=== PATIENT | female | born 1935 | race Caucasian/White ===

== ENCOUNTER → 2016-09-15 | Outpatient (REF) | payer MEDICARE | LOC: M LAB REF 16:08 | PROVIDERS: ATTEND Physician Assistant | DX: M54.5 Low back pain (principal); Z79.899 Other long term (current) drug therapy ==

== ENCOUNTER → 2017-01-02 | Outpatient (CLI) | payer MEDICARE ==
[2017-01-02 15:00] LABS: MEAN CORPUSCULAR HEMOGLOBIN 31.4 pg (27.0-33.0); MEAN CORPUSCULAR HGB CONC 32.9 g/dl (32.0-36.5); MEAN CORPUSCULAR VOLUME 95.3 fl (80.0-96.0); RED CELL DISTRIBUTION WIDTH 13.1 % (11.5-14.5); WHITE BLOOD COUNT 6.7 K/mm3 (4.0-10.0)
[2017-01-02 15:39] LABS: ALBUMIN 3.6 GM/DL (3.2-5.2); ANION GAP 5 MEQ/L (8-16); ANISOCYTOSIS 1+; BASOPHILS 2 % (0-4); BLOOD UREA NITROGEN 17 MG/DL (7-18); CALCIUM LEVEL 8.7 MG/DL (8.8-10.2); CARBON DIOXIDE LEVEL 34 MEQ/L (21-32); CHLORIDE LEVEL 101 MEQ/L (98-107); CREATININE FOR GFR 0.88 MG/DL (0.55-1.02); EOSINOPHILS 1 % (0-5); GLOMERULAR FILTRATION RATE > 60.0 (>32); GLUCOSE, FASTING 104 MG/DL (83-110); POTASSIUM SERUM 3.8 MEQ/L (3.5-5.1); SODIUM LEVEL 140 MEQ/L (136-145)
== END ==
LOC: M LAB 14:18
PROVIDERS: ATTEND Internal Medicine Nephrology
DX: N18.2 Chronic kidney disease, stage 2 (mild) (principal); Z79.899 Other long term (current) drug therapy

== ENCOUNTER → 2017-01-26 | Outpatient (CLI) | payer MEDICARE ==
--- NOTE | 2017-01-26 13:26 | REP ---
Urinary tract sonography: History: Chronic kidney disease, stage II. Findings: Scanning through the urine filled bladder demonstrates smooth bladder cr. Pre void bladder volume is calculated at 128 mL. Postvoid bladder volume is 36 mL, 28% postvoid residual. Emptying ureteral jets were not visualized. Renal cortical echogenicity pattern is normal bilaterally and renal contours are smooth. The right kidney measures 11.8 x 5.1 x 4.8 cm. Left renal dimensions of 10.2 x 5.3 x 5.8 cm. There is mild right-sided hydronephrosis. There is an echogenic structure in the right renal pelvis measuring 2.4 x 2.1 cm, suggestive of a calculus. Another large echogenic shadowing structure is seen 1.7 cm in diameter in the right kidney. There is a 2.4 x 1.6 x 3.1 cm cyst at the upper pole of the left kidney. Impression: Mild right-sided hydronephrosis with evidence of intrarenal nephrolithiasis on the right. Simple cyst upper pole left kidney. Signed by Norberto Deras MD 01/26/2017 02:50 P
== END ==
LOC: M RAD 11:52
PROVIDERS: ATTEND Internal Medicine Nephrology
DX: N18.2 Chronic kidney disease, stage 2 (mild) (principal); N39.0 Urinary tract infection, site not specified; N20.0 Calculus of kidney; N13.30 Unspecified hydronephrosis

== ENCOUNTER → 2017-01-27 | Outpatient (CLI) | payer MEDICARE ==
--- NOTE | 2017-01-27 13:30 | REP ---
Clinical nephrolithiasis. Comparison: 10/13/2011. Findings: Right kidney demonstrates cortical lobulation is and 2.5 cm nonobstructing renal calculus with mild likely chronic hydronephrosis possibly related to intermittent obstruction by the nephrolith. The right ureter is normal and without obstructing calculus. The left kidney demonstrates cortical lobulations and presumed cysts measuring up to 1.9 cm diameter without nephroureterolithiasis or hydroureteronephrosis. The bladder is unremarkable. Liver demonstrates chronic focal hypodense area with calcification along the posterior periphery of the right lobe unchanged from 2012. Spleen, pancreas, gallbladder, and bilateral adrenal glands are normal. The enteric system is without obstruction or acute inflammatory process. Few scattered colonic diverticula noted without acute diverticulitis. Pelvis demonstrates normal bladder and age-appropriate uterus. A 4.1 cm left adnexal cyst with calcification is again identified and dermoid cannot be excluded. Right adnexa demonstrates two calcifications unchanged compared to 2012. No ascites. No free air. No adenopathy. Atherosclerotic changes of the aorta and vasculature noted without aneurysm. 1 cm fat containing periumbilical hernia. Musculoskeletal structures demonstrate degenerative changes. Lung bases demonstrate partially calcified right posterior pleural plaque. Impression: 1. Presumed mild chronic right renal hydronephrosis possibly secondary to intermittent obstruction by 2.5 cm renal calculus. Left kidney demonstrates 1.9 cm suspected cyst and no evidence for nephroureterolithiasis or hydronephrosis. 2. 4.1 cm left adnexal cyst with calcification possibly dermoid. Signed by Garrick Nogueira MD 01/27/2017 01:21 P
== END ==
LOC: M RAD 12:34
PROVIDERS: ATTEND Internal Medicine Nephrology
DX: N20.0 Calculus of kidney (principal); N13.39 Other hydronephrosis

== ENCOUNTER → 2017-02-08 | Outpatient (CLI) | payer MEDICARE ==
[2017-02-08 18:27] LABS: ALBUMIN 3.8 GM/DL (3.2-5.2); ALBUMIN/GLOBULIN RATIO 1.06 (1.00-1.93); ALKALINE PHOSPHATASE 58 U/L (45-117); ALT/SGPT 18 U/L (12-78); ANION GAP 6 MEQ/L (8-16); AST/SGOT 11 U/L (15-37); BILIRUBIN,TOTAL 0.4 MG/DL (0.2-1.0); BLOOD UREA NITROGEN 23 MG/DL (7-18); CALCIUM LEVEL 9.7 MG/DL (8.8-10.2); CARBON DIOXIDE LEVEL 34 MEQ/L (21-32); CHLORIDE LEVEL 101 MEQ/L (98-107); CHOLESTEROL LEVEL 193 MG/DL (<200); CREATININE FOR GFR 0.89 MG/DL (0.55-1.02); GLOMERULAR FILTRATION RATE > 60.0 (>32); GLUCOSE, FASTING 93 MG/DL (83-110); POTASSIUM SERUM 3.4 MEQ/L (3.5-5.1); SODIUM LEVEL 141 MEQ/L (136-145); TOTAL PROTEIN 7.4 GM/DL (6.4-8.2); TRIGLYCERIDES LEVEL 135 MG/DL (<150)
[2017-02-08 18:32] LABS: BASO # 0.1 K/mm3 (0.0-0.2); BASO % 0.6 % (0.0-1.0); EOS # 0.1 K/mm3 (0.0-0.50); EOS % 1.4 % (0.0-3.0); LYMPH # 2.2 K/mm3 (1.5-4.5); LYMPH % 20.6 % (24.0-44.0); MEAN CORPUSCULAR HEMOGLOBIN 30.7 pg (27.0-33.0); MEAN CORPUSCULAR HGB CONC 32.6 g/dl (32.0-36.5); MEAN CORPUSCULAR VOLUME 94.2 fl (80.0-96.0); MONO # 0.6 K/mm3 (0.0-0.8); MONO % 5.9 % (0.0-5.0); NEUTROPHILS # 6.8 K/mm3 (1.8-7.7); RED CELL DISTRIBUTION WIDTH 13.1 % (11.5-14.5); WHITE BLOOD COUNT 9.7 K/mm3 (4.0-10.0)
== END ==
LOC: M LAB 15:48
PROVIDERS: ATTEND Family Medicine
DX: N20.0 Calculus of kidney (principal); Z79.899 Other long term (current) drug therapy

== ENCOUNTER → 2017-10-09 | Outpatient (CLI) | payer MEDICARE | LOC: M WUC 18:20 | DX: M79.604 Pain in right leg (principal) | CPT/HCPCS: 73590 ==

== ENCOUNTER → 2017-10-17 | Outpatient (CLI) | payer MEDICARE | LOC: M WUC 12:21 | DX: M25.571 Pain in right ankle and joints of right foot (principal) | CPT/HCPCS: 73610 ==

== ENCOUNTER → 2017-11-29 | Outpatient (REF) | payer MEDICARE ==
[2017-11-29 17:08] LABS: BASO # 0.1 10^3/uL (0.0-0.2); BASO % 0.9 % (0.0-1.0); EOS # 0.1 10^3/uL (0.0-0.50); EOS % 1.3 % (0.0-3.0); HEMATOCRIT 40.7 % (36.0-47.0); HEMOGLOBIN 12.9 g/dl (12.0-16.0); IMMATURE GRANULOCYTE % 0.3 % (0-3.0); LYMPH # 1.5 10^3/uL (1.5-4.5); LYMPH % 21.5 % (24.0-44.0); MEAN CORPUSCULAR HEMOGLOBIN 31.1 pg (27.0-33.0); MEAN CORPUSCULAR HGB CONC 31.7 g/dl (32.0-36.5); MEAN CORPUSCULAR VOLUME 98.1 fl (80.0-96.0); MONO # 0.5 10^3/uL (0.0-0.8); MONO % 7.1 % (0.0-5.0); NEUTROPHILS # 4.7 10^3/uL (1.8-7.7); NEUTROPHILS % 68.9 % (36.0-66.0); PLATELET COUNT, AUTOMATED 288 10^3/uL (150-450); RED BLOOD COUNT 4.15 10^6/uL (4.00-5.40); RED CELL DISTRIBUTION WIDTH 13.5 % (11.5-14.5); WHITE BLOOD COUNT 6.9 10^3/uL (4.0-10.0)
[2017-11-29 17:17] LABS: ANION GAP 6 MEQ/L (8-16); BLOOD UREA NITROGEN 28 MG/DL (7-18); CALCIUM LEVEL 8.5 MG/DL (8.8-10.2); CARBON DIOXIDE LEVEL 32 MEQ/L (21-32); CHLORIDE LEVEL 105 MEQ/L (98-107); CREATININE FOR GFR 0.98 MG/DL (0.55-1.30); GLOMERULAR FILTRATION RATE 57.6 (>32); GLUCOSE, FASTING 147 MG/DL (70-100); SODIUM LEVEL 143 MEQ/L (136-145)
== END ==
LOC: M LAB REF 16:27
DX: I77.9 Disorder of arteries and arterioles, unspecified (principal); N13.30 Unspecified hydronephrosis; E03.9 Hypothyroidism, unspecified; I10 Essential (primary) hypertension
CPT/HCPCS: 80048

== ENCOUNTER 2017-12-21 09:04 | Day surgery (SDC) | payer MEDICARE ==
[2017-12-21] MEDS ORDERED: LIDOCAINE 1% MDV 20ML VIAL SQ ×2 (09:45)
[2017-12-21] MEDS: PHENYLEPHRINE 2.5% OPHTH SOL 2ML OS ×2 (10:01)
[2017-12-21] MEDS: OFLOXACIN 0.3 % (OCUFLOX) OPTH SOL 5ML OS ×2 (10:01)
[2017-12-21] MEDS: PROPARACAINE 0.5% OPHTH SOL 15ML OS ×2 (10:01)
[2017-12-21] MEDS: TROPICAMIDE 1% OPHTH SOLN 2ML OS ×2 (10:01)
[2017-12-21] MEDS ORDERED: MIDAZOLAM INJ 2 MG/2 ML VIAL (J2250) As Ordered ×2 (10:49)
[2017-12-21] MEDS ORDERED: fentaNYL 100 MCG/2 ML INJECTION (J3010) As Ordered ×2 (10:49)
[2017-12-21] MEDS: POVIDONE-IODINE 5% OPHTH PREP SOL 30ML As Ordered ×2 (11:39)
[2017-12-21] MEDS: LIDOCAINE 0.75%/EPINEPHRINE 0.025% IN BSS 1ML SYR INTRACAMERAL (OR ONLY) As Ordered (11:39)
[2017-12-21] MEDS: BALANCED SALT IRRIGATION SOLUTION 500ML BAG (FOR OR EYE MACHINE) As Ordered ×2 (11:39)
[2017-12-21] MEDS: DUOVISC (0.50ML VISCOAT/0.55ML PROVISC) OPHTH KIT As Ordered ×2 (11:39)
[2017-12-21] MEDS: CEFUROXIME 1MG/0.1ML INTRACAMERAL INJ As Ordered ×2 (11:40)
== END 2017-12-21 12:30 | disposition home or self-care (01) ==
LOC: M SDC 09:04
DX: H25.12 Age-related nuclear cataract, left eye (principal); I10 Essential (primary) hypertension; E03.9 Hypothyroidism, unspecified; E78.00 Pure hypercholesterolemia, unspecified; M12.9 Arthropathy, unspecified; Z79.899 Other long term (current) drug therapy; Z79.82 Long term (current) use of aspirin; Z78.0 Asymptomatic menopausal state; Z87.891 Personal history of nicotine dependence; Z95.828 Presence of other vascular implants and grafts
CPT/HCPCS: 66984

== ENCOUNTER 2017-12-28 09:54 | Day surgery (SDC) | payer MEDICARE ==
[2017-12-28] MEDS: PROPARACAINE 0.5% OPHTH SOL 15ML OD (10:25)
[2017-12-28] MEDS: PHENYLEPHRINE 2.5% OPHTH SOL 2ML OD (10:30)
[2017-12-28] MEDS: TROPICAMIDE 1% OPHTH SOLN 2ML OD (10:35)
[2017-12-28] MEDS: OFLOXACIN 0.3 % (OCUFLOX) OPTH SOL 5ML OD (10:40)
[2017-12-28] MEDS ORDERED: fentaNYL 100 MCG/2 ML INJECTION (J3010) As Ordered (11:27)
[2017-12-28] MEDS ORDERED: MIDAZOLAM INJ 2 MG/2 ML VIAL (J2250) As Ordered (11:27)
[2017-12-28] MEDS: POVIDONE-IODINE 5% OPHTH PREP SOL 30ML As Ordered (11:56)
[2017-12-28] MEDS: CEFUROXIME 1MG/0.1ML INTRACAMERAL INJ As Ordered (12:02)
[2017-12-28] MEDS: BALANCED SALT IRRIGATION SOLUTION 500ML BAG (FOR OR EYE MACHINE) As Ordered (12:02)
[2017-12-28] MEDS: DUOVISC (0.50ML VISCOAT/0.55ML PROVISC) OPHTH KIT As Ordered (12:02)
[2017-12-28] MEDS: LIDOCAINE 0.75%/EPINEPHRINE 0.025% IN BSS 1ML SYR INTRACAMERAL (OR ONLY) As Ordered (12:02)
== END 2017-12-28 12:51 | disposition home or self-care (01) ==
LOC: M SDC 09:54
DX: H25.11 Age-related nuclear cataract, right eye (principal); I10 Essential (primary) hypertension; E03.9 Hypothyroidism, unspecified; E78.5 Hyperlipidemia, unspecified; Z79.899 Other long term (current) drug therapy; Z79.01 Long term (current) use of anticoagulants; Z79.82 Long term (current) use of aspirin
CPT/HCPCS: 66984

== ENCOUNTER 2018-04-02 15:16 | Emergency (ER) | payer MEDICARE | END 2018-04-02 17:51 | disposition home or self-care (01) | LOC: M ED 15:16 | DX: N81.4 Uterovaginal prolapse, unspecified (principal); I10 Essential (primary) hypertension; E03.9 Hypothyroidism, unspecified; Z79.890 Hormone replacement therapy; Z79.899 Other long term (current) drug therapy; Z79.01 Long term (current) use of anticoagulants; Z79.82 Long term (current) use of aspirin | CPT/HCPCS: 99282 ==

== ENCOUNTER 2019-10-11 19:25 | Inpatient (IN) | payer MEDICARE ==
[~2019-10-11] VITALS: Ht 157.5 cm; Wt 62.0 kg
[~2019-10-11 19:25] MED LIST: ASPI-255 PO; CARV12.5 PO; CLOP75TA2 PO; HYDR25TAB PO; LEVO75TA4 PO; PARO5TAB; SIMV20TA22 PO
[2019-10-11 20:39] LABS: BASO % 0.3 % (0.0-1.0); EOS % 0.2 % (0.0-3.0); HEMATOCRIT 24.7 % (36.0-47.0); HEMOGLOBIN 7.7 g/dl (12.0-15.5); LYMPH # 1.4 10^3/uL (1.5-5.0); LYMPH % 12.3 % (24.0-44.0); MEAN CORPUSCULAR HEMOGLOBIN 30.2 pg (27.0-33.0); MEAN CORPUSCULAR HGB CONC 31.2 g/dl (32.0-36.5); MEAN CORPUSCULAR VOLUME 96.9 fl (80.0-96.0); MONO # 0.5 10^3/uL (0.0-0.8); MONO % 4.1 % (0.0-5.0); NEUTROPHILS % 82.3 % (36.0-66.0); PLATELET COUNT, AUTOMATED 250 10^3/uL (150-450); RED BLOOD COUNT 2.55 10^6/uL (4.00-5.40)
[2019-10-11] MEDS ORDERED: ONDANSETRON 4MG/2ML VIAL (J2405) IV ONE (20:45)
[2019-10-11] MEDS: PARoxetine 10MG TABLET PO SCH (21:00)
[2019-10-11 21:10] LABS: INFLUENZA A AMPLIFICATION NEGATIVE (NEGATIVE); INFLUENZA B AMPLIFICATION NEGATIVE (NEGATIVE)
[2019-10-11 21:14] LABS: ALBUMIN 3.5 GM/DL (3.2-5.2); ALT/SGPT 17 U/L (12-78); BILIRUBIN,DIRECT < 0.1 MG/DL (0.0-0.2); BILIRUBIN,TOTAL 0.3 MG/DL (0.2-1.0); CK-MB VALUE MASS 1.2 NG/ML (<3.6); CPK CREATINE PHOSPHOKINASE 65 U/L (26-192); MB/CK RELATIVE INDEX 1.85 (< OR =4); TOTAL PROTEIN 6.6 GM/DL (6.4-8.2); TROPONIN I < 0.02 NG/ML (< 0.10)
[2019-10-11] MEDS ORDERED: ISOVUE-370 76% 100ML VIAL (Q9967) As Ordered ONE (21:34)
--- NOTE | 2019-10-11 22:12 | ECGEPIP ---
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
--- NOTE | 2019-10-11 22:44 | REPVR ---
PROCEDURE INFORMATION: Exam: CT Abdomen And Pelvis With Contrast Exam date and time: 10/11/2019 10:21 PM Age: 84 years old Clinical indication: Abdominal pain; Generalized; Additional info: Abd pain, diarrhea TECHNIQUE: Imaging protocol: Computed tomography of the abdomen and pelvis with intravenous contrast. Radiation optimization: All CT scans at this facility use at least one of these dose optimization techniques: automated exposure control; mA and/or kV adjustment per patient size (includes targeted exams where dose is matched to clinical indication); or iterative reconstruction. Contrast material: ISOVUE 370; Contrast volume: 100 ml; Contrast route: IV; COMPARISON: CT ABD PELVIS W/O CONTRAST 01/27/2017 12:53 PM FINDINGS: Mediastinum: A small hiatal hernia is present. Liver: Low-attenuation lesion in the posterior aspect of the right lobe of the liver measures 1.4 x 2.3 cm associated with calcifications. Finding is unchanged in comparison to prior studies dating back to 2012. Gallbladder and bile ducts: Normal. No calcified stones. No ductal dilation. Pancreas: There is diffuse pancreatic atrophy. Spleen: Normal. No splenomegaly. Adrenals: Normal. No mass. Kidneys and ureters: Simple left renal cysts measure up to 2.6 cm. Mild bilateral hydroureteronephrosis without obstructing etiology. Stomach and bowel: Mild colonic diverticular disease. No diverticulitis. Appendix: No evidence of appendicitis. Intraperitoneal space: Unremarkable. No free air. No significant fluid collection. Vasculature: The aorta demonstrates moderate atherosclerotic calcification. Lymph nodes: Unremarkable. No enlarged lymph nodes. Bladder: Unremarkable as visualized. Reproductive: 4.9 x 4.7 x 5.8 cm cyst in left ovary associated with a calcification. Follow-up with pelvic ultrasound suggested. Bones/joints: Severe central spinal stenosis L3-L4, L4-L5. Posterior disc protrusion L5-S1 may impinge on the right S1 nerve root. Dextroscoliosis. The spine demonstrates moderate degenerative changes. Soft tissues: There is a small umbilical hernia. There is no evidence of incarceration. IMPRESSION: 1. A small hiatal hernia is present. 2. There is diffuse pancreatic atrophy. 3. 4.9 x 4.7 x 5.8 cm cyst in left ovary associated with a calcification. Follow-up with pelvic ultrasound suggested. 4. Stable partially calcified low-density lesion in the liver. COMMENT: Consistent with the [employer]'s Incidental Findings Committee white paper (J Am Shaji Radiol 2018): Any incidental cystic renal lesion classified in this report as too small to characterize or simple appearing is likely a benign cyst. No follow-up imaging is recommended for these lesions per consensus recommendations based on imaging criteria. Six Electronically signed by: Fantasma Ryder On 10/11/2019 22:43:50 PM
[2019-10-11] MEDS ORDERED: MULTCAP PO (23:36)
[2019-10-11] MEDS ORDERED: VITA200028 PO (23:36)
[2019-10-11] MEDS ORDERED: PARO10TA3 PO (23:36)
[2019-10-11] MEDS ORDERED: OYST1TAB PO (23:36)
[2019-10-12] VITALS (15 sets, daily range): BP systolic 93–152; BP diastolic 44–78
--- NOTE | 2019-10-12 00:01 | HPEPDOC ---
[facility] Medical History & Physical Date of Admission Oct 12, 2019 Date of Service: Oct 12, 2019 Primary Care Physician: Rosy Arambula Attending Physician: BISHOP PURCELL MD History and Physical TIME OF SERVICE: 12:05 AM CHIEF COMPLAINT: Weakness HISTORY OF PRESENT ILLNESS: This is an 84 old female who came to the hospital because her son insisted that she come in for evaluation of weakness. The last 3 days. The patient has been feeling weak and had a fall, which she attributes to her knees buckling beneath her, while trying to get up from the toilet. She did not hit her head. She is also had a poor appetite, abdominal cramping, and nonbloody diarrhea 1 day. She is menopausal and denies having any vaginal bleeding. Per Dr. Freedman, her hemoglobin is low and stool occult was positive; the patient has never had a colonoscopy. REVIEW OF SYSTEMS: 12 point review of systems negative except as listed in HPI PAST MEDICAL/ SURGICAL HISTORY: Chronic HTN Hypothyroidism. Hiatal hernia Uterine prolapse requiring pessary Status post appendectomy Status post lithotripsy? for nephrolithiasis Status post lung surgery to manage collapsed lung SOCIAL HISTORY: She is a former smoker. She is and lives with her son and She is independent with regards to her ADLs and IADLs FAMILY HISTORY: Diabetes Hypertension ALLERGIES: Please see below. HOME MEDICATIONS: Please see below. PHYSICAL EXAMINATION: VITAL SIGNS: Please see below. GEN: well-nourished / well developed/ NAD INTEGUMENT: not flushed/ not jaundice HEENT: NCAT / /mucus membranes moist and pink CVS: RRR/NMRG/no lower extremity edema LUNGS: clear to auscultation bilaterally on room air ABDOMEN: Contour (flat) / soft & not tender with palpation NEURO: CN 2-12 are grossly intact / speech is not dysarthric PSYCH: alert and oriented to person place and time/ able to understand and follow all commands LABORATORY DATA: See below. IMAGING: CT abdomen and pelvis " IMPRESSION: 1. A small hiatal hernia is present. 2. There is diffuse pancreatic atrophy. 3. 4.9 x 4.7 x 5.8 cm cyst in left ovary associated with a calcification. Follow-up with pelvic ultrasound suggested. 4. Stable partially calcified low-density lesion in the liver. MICROBIOLOGY: Please see below. ASSESSMENT: Ms. Hayden is a 74-year-old female with a history of hypothyroidism, and HTN who is admitted for management of symptomatic anemia. PLAN: 1. Acute symptomatic anemia. The acute drop in her hemoglobin is likely due to lower GI bleed because of positive stool occult The macrocytosis may be due to hypothyroidism. Marlow score to predict risk of readmission for GI bleed = 24 points = discharge from ED not recommended Dr. Freedman ordered 3 units of PRBCs She is not tachycardic and her MAP is currently in the 70s Plan: Admit to PCU/ f/u serial H/H, reticulocyte #, iron panel w ferritin, B12, RBC folate, thiamine / clear liquid diet pending GI consult for c-scope / since she denied having an [place] will hold aspirin and Plavix 2. Metabolic alkalosis Likey due to HTCZ (which can cause contraction alkalosis). The patient denied vomiting. Plan: f/u BMP after IVF 3. Left calcific ovarian cyst - Plan: Follow-up with PCP for TVUS on an out patient basis 4. Chronic HTN - Plan: Hydrochlorothiazide. 5. Hypothyroidism - Plan: Levothyroxine DVT PROPHYLAXIS: SCDs DISPOSITION: Home with her son after more than 2 midnight's stay Vital Signs Vital Signs Date Time Temp Pulse Resp B/P (MAP) Pulse Ox O2 Delivery O2 Flow Rate FiO2 10/11/19 23:01 134/55 (81) 10/11/19 22:55 79 10/11/19 22:10 97 10/11/19 19:26 97.3 16 Room Air Laboratory Data Labs 24H Laboratory Tests 2 10/11/19 20:24: Bedside Glucose (Misc Panel) 109 10/11/19 20:28: Immature Granulocyte % (Auto) 0.8, Neutrophils (%) (Auto) 82.3H, Lymphocytes (%) (Auto) 12.3L, Monocytes (%) (Auto) 4.1, Eosinophils (%) (Auto) 0.2, Basophils (%) (Auto) 0.3, Neutrophils # (Auto) 9.0H, Lymphocytes # (Auto) 1.4L, Monocytes # (Auto) 0.5, Eosinophils # (Auto) 0.0, Basophils # (Auto) 0.0, Nucleated Red Blood Cells % (auto) 0.0, Total Bilirubin 0.3, Direct Bilirubin < 0.1, Aspartate Amino Transf (AST/SGOT) 11, Alanine Aminotransferase (ALT/SGPT) 17, Alkaline Phosphatase 40L, Total Creatine Kinase 65, Creatine Kinase MB 1.2, Creatine Kinase MB Relative Index 1.85, Troponin I < 0.02, Total Protein 6.6, Albumin 3.5, Albumin/Globulin Ratio 1.13, Thyroid Stimulating Hormone (TSH) 4.000H, Influenza Type A (RT-PCR) NEGATIVE, Influenza Type B (RT-PCR) NEGATIVE 10/11/19 20:38: POC Glucose (Misc Panel) 117H, POC Sodium (Misc Panel) 140, POC Potassium (Misc Panel) 3.6, POC Chloride (Misc Panel) 98, POC Total CO2 (Misc Panel) 33.0H, POC Blood Urea Nitrogen (Misc Panel 31H, POC Ionized Calcium (Misc Panel) 4.9, POC Creatinine (Misc Panel) 0.8, POC Hematocrit (Misc Panel) 24.0L CBC/BMP Laboratory Tests 10/11/19 20:28 Home Medications Scheduled Aspirin (Aspirin EC) 325 Mg Tabec, 325 MG PO DAILY Calcium Carbonate (Calcium) 500 Mg Tablet, 500 MG PO DAILY Carvedilol (Carvedilol) 12.5 Mg Tab, 25 MG PO DAILY Clopidogrel Bisulfate (Clopidogrel) 75 Mg Tab, 75 MG PO QHS Ergocalciferol (Vitamin D2) (Vitamin D2) 2,000 Unit Tablet, 2,000 UNIT PO DAILY Hydrochlorothiazide (Hydrochlorothiazide) 25 Mg Tab, 25 MG PO DAILY Levothyroxine Sodium (Levothyroxine Sodium) 75 Mcg Tab, 75 MCG PO DAILY Multivitamin (Multivitamins) 1 Each Capsule, 1 CAP PO DAILY Paroxetine HCl (Paroxetine) 10 Mg Tablet, 10 MG PO QHS Simvastatin (Simvastatin) 20 Mg Tab, 20 MG PO QHS Allergies Coded Allergies: No Known Allergies (Unverified , 12/21/17) A-FIB/CHADSVASC A-FIB History Current/History of A-Fib/PAF?: No Current PO Anticoag Therapy: BISHOP Nuñez MD Oct 12, 2019 00:01
[2019-10-12] MEDS ORDERED: NS 500 ML IV SCH (01:15)
[2019-10-12] MEDS: LEVOTHYROXINE 75MCG TABLET (0.075MG) PO SCH (06:09)
[2019-10-12 07:53] LABS: FERRITIN 33 NG/ML (8-252); IRON (FE) 35 UG/DL (50-170); PERCENT SATURATION 11.4 % (13.2-45.0); TOTAL IRON BINDING CAPACITY 308 UG/DL (250-450)
[2019-10-12] MEDS: CARVedilol 12.5 MG TAB PO SCH (11:10)
[2019-10-12] MEDS: hydroCHLOROthiazide 25 MG TAB PO SCH (11:10)
[2019-10-12] MEDS ORDERED: SLF 3 ML SYR IV PRN (11:15)
[2019-10-12 12:21] LABS: HEMATOCRIT 34.3 % (36.0-47.0); MEAN CORPUSCULAR HGB CONC 32.4 g/dl (32.0-36.5); MEAN CORPUSCULAR VOLUME 92.7 fl (80.0-96.0); PLATELET COUNT, AUTOMATED 209 10^3/uL (150-450); WHITE BLOOD COUNT 8.6 10^3/uL (4.0-10.0)
[2019-10-12 12:23] LABS: HEMOGLOBIN 11.1 g/dl (12.0-15.5)
[2019-10-12 12:24] LABS: INR 1.09; PROTHROMBIN TIME 13.8 SECONDS (11.8-14.0)
[2019-10-12 12:46] LABS: BLOOD UREA NITROGEN 18 MG/DL (7-18); CALCIUM LEVEL 8.4 MG/DL (8.8-10.2); CARBON DIOXIDE LEVEL 32 MEQ/L (21-32); CHLORIDE LEVEL 104 MEQ/L (98-107); CREATININE FOR GFR 0.73 MG/DL (0.55-1.30); GLOMERULAR FILTRATION RATE > 60.0 (>32); GLUCOSE, FASTING 111 MG/DL (70-100); POTASSIUM SERUM 3.3 MEQ/L (3.5-5.1); SODIUM LEVEL 140 MEQ/L (136-145)
[2019-10-12] MEDS: SLF 3 ML SYR IV SCH ×2 (13:11→19:46)
[2019-10-12] MEDS ORDERED: OMEP-218 PO (14:41)
[2019-10-12] MEDS ORDERED: SUCR1TA PO (14:41)
[2019-10-12] MEDS ORDERED: POTASSIUM CHLORIDE 10 MEQ SR TABLET PO ONE (14:45)
[2019-10-12] MEDS ORDERED: OMEPRAZOLE 20 MG CAP PO ONE (14:45)
[2019-10-12] MEDS: SUCRALFATE 1 GM TAB PO SCH ×2 (17:26→19:46)
[2019-10-12] MEDS: PARoxetine 10MG TABLET PO SCH (19:46)
--- NOTE | 2019-10-12 20:33 | IPN ---
DATE: 10/12/2019 The patient denies bright red blood per rectum, melena or black tarry stools, coffee ground emesis, nausea, vomiting, epigastric abdominal pain, dizziness, lightheadedness, shortness of breath, chest pain, pressure, tightness, or near syncope. PHYSICAL EXAMINATION: VITAL SIGNS: Telemetry shows sinus rhythm with ventricular rate of 60 to 65, afebrile at 97.5, pulse 65, respiratory rate 18, blood pressure 124/55, 93% on room air. GENERAL: The patient is awake, alert, oriented times three. Answers questions appropriately. No icterus or jaundice. No pallor. No cervical lymphadenopathy, thyromegaly or jugular venous distention (JVD). LUNGS: Clear to auscultation. No wheezing or rales or rhonchi. HEART: S1, S2. Sinus bradycardia. ABDOMEN: Soft, nontender, nondistended. Positive bowel sounds. EXTREMITIES: No cyanosis, clubbing or pitting edema. LABORATORY DATA: Hemoglobin 11 from prior hemoglobin of 7.7. Sodium 140, potassium 3.3, chloride 103, bicarbonate 32, BUN 18, creatinine 0.73, glucose 111. CT of the abdomen and pelvis shows small hiatal hernia, diffuse pancreatic atrophy, left ovary cyst with calcification. Pelvic ultrasound suggested partially calcified low density lesion in the liver. ASSESSMENT AND PLAN: This is an 84-year-old female with a history of hypertension, hypothyroidism, hiatal hernia, nephrolithiasis, lithotripsy, appendectomy, uterine prolapse requiring pessary, lung surgery to manage collapsed lung, presented with a 3 day history of worsening weakness, unable to get up from the toilet, poor appetite, abdominal cramping, non-bloody diarrhea for one day. The patient denies having vaginal bleeding. Hemoglobin was 7.7 and hemoccult positive, never had a colonoscopy and admitted for symptomatic anemia, most likely secondary to gastrointestinal bleed. The patient's hemoglobin improved to 11 after 2 units of red blood cell transfusion. She had no recurrent episodes of any upper or lower gastrointestinal bleed. Denies hematemesis, bright red blood per rectum, melena, black tarry stools, coffee ground emesis, nom epigastric pain, nausea, or vomiting. Diet was advanced, which she tolerated. The patient is adamant about being discharged soon. Per Dr. Souza, inspector plug seam web solutions architect, no need for emergent colonoscopy or esophagogastroduodenoscopy (EGD) as the patient appears to be stable with no overt bleeding. Abnormal ovary on CT. Pelvic ultrasound as outpatient. DISPOSITION: Discharge in the morning if stable hemoglobin. Start on Carafate, proton pump inhibitor and await physical therapy (PT) home safety evaluation. MTDD
[2019-10-13 04:00] VITALS: BP 130/62
[2019-10-13 05:21] LABS: HEMATOCRIT 34.2 % (36.0-47.0); HEMOGLOBIN 11.3 g/dl (12.0-15.5); MEAN CORPUSCULAR HEMOGLOBIN 30.4 pg (27.0-33.0); MEAN CORPUSCULAR VOLUME 91.9 fl (80.0-96.0); PLATELET COUNT, AUTOMATED 247 10^3/uL (150-450); RED BLOOD COUNT 3.72 10^6/uL (4.00-5.40); WHITE BLOOD COUNT 8.4 10^3/uL (4.0-10.0)
[2019-10-13 05:47] LABS: BLOOD UREA NITROGEN 16 MG/DL (7-18); CALCIUM LEVEL 8.5 MG/DL (8.8-10.2); CARBON DIOXIDE LEVEL 32 MEQ/L (21-32); CHLORIDE LEVEL 104 MEQ/L (98-107); CREATININE FOR GFR 0.69 MG/DL (0.55-1.30); GLOMERULAR FILTRATION RATE > 60.0 (>32); GLUCOSE, FASTING 94 MG/DL (70-100); POTASSIUM SERUM 3.4 MEQ/L (3.5-5.1); SODIUM LEVEL 142 MEQ/L (136-145)
[2019-10-13] MEDS: LEVOTHYROXINE 75MCG TABLET (0.075MG) PO SCH (05:56)
[2019-10-13] MEDS: SLF 3 ML SYR IV SCH (05:56)
[2019-10-13 08:00] VITALS: BP 145/68
[2019-10-13] MEDS: hydroCHLOROthiazide 25 MG TAB PO SCH (08:10)
[2019-10-13] MEDS: SUCRALFATE 1 GM TAB PO SCH (08:10)
[2019-10-13 08:11] VITALS: BP 137/61
[2019-10-13] MEDS: CARVedilol 12.5 MG TAB PO SCH (08:11)
[2019-10-13] MEDS ORDERED: POTASSIUM CHLORIDE 10 MEQ SR TABLET PO ONE (08:30)
[2019-10-13] MEDS ORDERED: OMEPRAZOLE 20 MG CAP PO SCH (09:00)
--- NOTE | 2019-10-13 14:05 | DS.PDOC ---
Discharge Summary General Date of Admission Oct 11, 2019 at 23:55 Date of Discharge oct 13, 2019 Discharge Summary DISCHARGE DIAGNOSES: Symptomatic Anemia Chronic Iron Deficiency GI Bleed hypertension hypothyroidism hiatal hernia HOSPITAL COURSE: This is an 84-year-old female with a history of hypertension, hypothyroidism, hiatal hernia, nephrolithiasis, lithotripsy, appendectomy, uterine prolapse requiring pessary, lung surgery to manage collapsed lung, presented with a 3 day history of worsening weakness, unable to get up from the toilet, poor appetite, abdominal cramping, non-bloody diarrhea for one day. The patient denies having vaginal bleeding. Hemoglobin was 7.7 and hemoccult positive, never had a colonoscopy and admitted for symptomatic anemia, most likely secondary to gastrointestinal bleed. The patient's hemoglobin improved to 11 after 2 units of red blood cell transfusion. She had no recurrent episodes of any upper or lower gastrointestinal bleed. Denies hematemesis, bright red blood per rectum, melena, black tarry stools, coffee ground emesis, nom epigastric pain, nausea, or vomiting. Diet was advanced, which she tolerated. The patient is adamant about being discharged soon. Per Dr. Souza, embedded software architect electric motor controls assembler, no need for emergent colonoscopy or esophagogastroduodenoscopy (EGD) as the patient appears to be stable with no overt bleeding. DISCHARGE MEDICATIONS: Please see below. ALLERGIES: Please see below. PHYSICAL EXAMINATION ON DISCHARGE: VITAL SIGNS: Please see below GENERAL: The patient is awake, alert, oriented times three. Answers questions appropriately. No icterus or jaundice. No pallor. No cervical lymphadenopathy, thyromegaly or jugular venous distention (JVD). LUNGS: Clear to auscultation. No wheezing or rales or rhonchi. HEART: S1, S2. Sinus bradycardia. ABDOMEN: Soft, nontender, nondistended. Positive bowel sounds. EXTREMITIES: No cyanosis, clubbing or pitting edema. LABORATORY DATA: Please see below. ACTIVITY: As tolerated DISCHARGE PLAN: Stop Aspirin. DISPOSITION: 01 Home, Self-Care. DISCHARGE INSTRUCTIONS: immediate fu with Dr. Jose A Souza for EGD in 1-2 wks, pcp in 1 wk . return to er if recurrent symptoms DISCHARGE CONDITION:stable TIME SPENT ON DISCHARGE: 30 minutes. Vital Signs/I&Os Vital Signs Date Time Temp Pulse Resp B/P (MAP) Pulse Ox O2 Delivery O2 Flow Rate FiO2 10/13/19 08:11 65 137/61 10/13/19 08:00 97.8 18 97 Room Air I&O- Last 24 Hours up to 6 AM 10/13/19 06:00 Intake Total 910 ml Output Total 1300 ml Balance -390 ml Laboratory Data Labs 24H Laboratory Tests 2 10/13/19 04:45: Nucleated Red Blood Cells % (auto) 0.0, Anion Gap 6L, Glomerular Filtration Rate > 60.0, Calcium Level 8.5L CBC/BMP Laboratory Tests 10/13/19 04:45 Discharge Medications Scheduled Calcium Carbonate (Calcium) 500 Mg Tablet, 500 MG PO DAILY, (Reported) Carvedilol (Carvedilol) 12.5 Mg Tab, 25 MG PO DAILY, (Reported) Clopidogrel Bisulfate (Clopidogrel) 75 Mg Tab, 75 MG PO QHS, (Reported) Ergocalciferol (Vitamin D2) (Vitamin D2) 2,000 Unit Tablet, 2,000 UNIT PO DAILY, (Reported) Hydrochlorothiazide (Hydrochlorothiazide) 25 Mg Tab, 25 MG PO DAILY, (Reported) Levothyroxine Sodium (Levothyroxine Sodium) 75 Mcg Tab, 75 MCG PO DAILY, (Reported) Multivitamin (Multivitamins) 1 Each Capsule, 1 CAP PO DAILY, (Reported) Omeprazole (Omeprazole) 20 Mg Capsule.dr, 20 MG PO DAILY Paroxetine HCl (Paroxetine) 10 Mg Tablet, 10 MG PO QHS, (Reported) Simvastatin (Simvastatin) 20 Mg Tab, 20 MG PO QHS, (Reported) Sucralfate (Sucralfate) 1 Gm Tablet, 1 GM PO ACHS Allergies Coded Allergies: No Known Allergies (Unverified , 12/21/17) MARLENA OGDEN MD Oct 13, 2019 13:58
[2019-10-14 12:23] LABS: FOLATE 21.8 NG/ML; VITAMIN B12 LEVEL 470 PG/ML
== END 2019-10-13 10:22 | disposition home or self-care (01) | DRG 812 ==
LOC: M ED 19:25 → M ED INP 23:55 → ENRESERVTM 10-12 07:20 → ENRESERVDT 10-12 07:20 → ENRESERVTM 10-12 09:58 → M PCU 10-12 10:43
PROVIDERS: ADMIT Internal Medicine; ATTEND General Practice
DX: D50.0 Iron deficiency anemia secondary to blood loss (chronic) (principal); E87.3 Alkalosis; K92.2 Gastrointestinal hemorrhage, unspecified; I10 Essential (primary) hypertension; E03.9 Hypothyroidism, unspecified; K44.9 Diaphragmatic hernia without obstruction or gangrene; Z90.49 Acquired absence of other specified parts of digestive tract; Z87.442 Personal history of urinary calculi; Z87.891 Personal history of nicotine dependence; R53.1 Weakness; Z79.82 Long term (current) use of aspirin; N83.292 Other ovarian cyst, left side; Z79.899 Other long term (current) drug therapy

== ENCOUNTER 2019-12-19 12:50 | Inpatient (IN) | payer MEDICARE ==
[~2019-12-19] VITALS: Ht 157.5 cm; Wt 61.1 kg
[2019-12-19] MEDS: PARoxetine 10MG TABLET PO SCH (09:00)
[2019-12-19] MEDS: OYSTER SHELL CALCIUM 500 MG TAB PO SCH (09:00)
[2019-12-19] MEDS: hydroCHLOROthiazide 25 MG TAB PO SCH (09:00)
[2019-12-19] MEDS: OMEPRAZOLE 20 MG CAP PO SCH (09:00)
[2019-12-19] MEDS: VITAMIN D 1,000 INTERNATIONAL UNITS TABLET PO SCH (09:00)
[~2019-12-19 12:50] MED LIST changes: +MULTCAP PO; +OMEP-218 PO; +OYST1TAB PO; +PARO10TA3 PO; +SUCR1TA PO; +VITA200028 PO
[2019-12-19] MEDS ORDERED: ACETAMINOPHEN TAB 650MG DOSE (2X325MG) PO ONE (13:30)
[2019-12-19 13:52] LABS: BASO % 0.9 % (0.0-1.0); HEMATOCRIT 38.4 % (36.0-47.0); HEMOGLOBIN 12.7 g/dl (12.0-15.5); LYMPH # 0.4 10^3/uL (1.5-5.0); LYMPH % 15.8 % (24.0-44.0); MEAN CORPUSCULAR HEMOGLOBIN 29.4 pg (27.0-33.0); MEAN CORPUSCULAR HGB CONC 33.1 g/dl (32.0-36.5); MEAN CORPUSCULAR VOLUME 88.9 fl (80.0-96.0); MONO # 0.3 10^3/uL (0.0-0.8); MONO % 12.2 % (0.0-5.0); NEUTROPHILS # 1.6 10^3/uL (1.5-8.5); NEUTROPHILS % 69.7 % (36.0-66.0); RED BLOOD COUNT 4.32 10^6/uL (4.00-5.40); WHITE BLOOD COUNT 2.2 10^3/uL (4.0-10.0)
[2019-12-19 14:17] LABS: ALBUMIN 2.9 GM/DL (3.2-5.2); ALT/SGPT 32 U/L (12-78); BILIRUBIN,DIRECT 0.2 MG/DL (0.0-0.2); BILIRUBIN,TOTAL 0.6 MG/DL (0.2-1.0); BLOOD UREA NITROGEN 22 MG/DL (7-18); CALCIUM LEVEL 7.8 MG/DL (8.8-10.2); CARBON DIOXIDE LEVEL 31 MEQ/L (21-32); CHLORIDE LEVEL 93 MEQ/L (98-107); CREATININE FOR GFR 0.79 MG/DL (0.55-1.30); GLOMERULAR FILTRATION RATE > 60.0 (>32); GLUCOSE, FASTING 98 MG/DL (70-100); POTASSIUM SERUM 2.9 MEQ/L (3.5-5.1); SODIUM LEVEL 132 MEQ/L (136-145); TOTAL PROTEIN 6.8 GM/DL (6.4-8.2)
[2019-12-19 14:22] LABS: PLATELET COUNT, AUTOMATED 33 10^3/uL (150-450)
--- NOTE | 2019-12-19 14:42 | REP ---
CHEST, SINGLE VIEW: Single view of the chest is performed. COMPARISON: 08/19/2003. There is diffuse interstitial fibrotic change which is chronic and stable. There is mild left apical pleural thickening which is stable. There is a moderate degree of focal pleural thickening on the right apex, which is also stable. The heart does not appear to be significantly enlarged. There is calcification and ectasia of the thoracic aorta. The mediastinal silhouette is unchanged. There is mild deviation of the superior mediastinal structures and trachea to the right. IMPRESSION: Stable chronic changes without evidence of acute infiltrate. Electronically Signed by Prashant Chamorro MD 12/19/2019 03:48 P
[2019-12-19] MEDS ORDERED: NS 500 ML IV ONE (15:15)
[2019-12-19] MEDS ORDERED: POTASSIUM CHLORIDE 10 MEQ SR TABLET PO ONE ×2 (15:30→21:00)
[2019-12-19] MEDS ORDERED: KCL 20MEQ IN 100ML SWI (KRUN) 20 MEQ in IV 1 EA IV ONE ×2 (15:30)
[2019-12-19] MEDS ORDERED: KCL 10MEQ/100ML SWI (KRUN) 10 MEQ in IV 1 EA IV ONE ×2 (15:30→17:00)
[2019-12-19] MEDS ORDERED: HYDR-3363 PO (15:34)
[2019-12-19] MEDS ORDERED: SUCR1TAB56 PO (15:34)
[2019-12-19] MEDS ORDERED: OMEP1CAP73 PO (15:34)
[2019-12-19] MEDS ORDERED: VITAD1000T PO (15:34)
[2019-12-19] MEDS ORDERED: hydrOXYzine 25 MG TAB PO PRN (16:45)
--- NOTE | 2019-12-19 17:06 | HPEPDOC ---
[facility] Medical History & Physical Date of Admission Dec 19, 2019 Date of Service: Dec 19, 2019 Attending Physician: MIRYAM ANDERSON MD History and Physical CHIEF COMPLAINT: Weakness, Fever HISTORY OF PRESENT ILLNESS: 84 y.o female w/ PMH of HTN, GI bleed, HLD & Hypothyroidism presents from home with weakness/fever. Patient is comfortable, poor historian and unable to provide an adequate history. She had a hard time recalling why she even came to the hospital. Information obtained from chart rev iew & ED staff. Patient has reportedly had weakness, fatigue & fever for the past few days with poor oral intake. She is febrile in the ED with hypotension which resolved w/ IV fluids. She is also found to have new leukopenia & thrombocytopenia. She has no complaints at this time. She denies any SOB, cough, CP, N/V/D or abdominal pain. 10 point review of system is negative except for above. PAST MEDICAL HISTORY: 1. HTN 2. HLD 3. Hypothyroidism 4. GI bleed PAST SURGICAL HISTORY: 1. R lung Lobectomy SOCIAL HISTORY: Previous smoker denies alcohol use denies drug use FAMILY HISTORY: Positive for breast cancer ALLERGIES: Please see below. HOME MEDICATIONS: Please see below. PHYSICAL EXAMINATION: VITAL SIGNS: See below GENERAL APPEARANCE: Frail HEENT: dry mucus membranes CARDIOVASCULAR: S1, S2 LUNGS: diminished on R side, poor air movement, no wheezing ABDOMEN: Soft, non-tender, non-distended, +BS EXTREMITIES: ROM intact NEUROLOGICAL: No focal deficits PSYCHIATRIC: Calm LABORATORY DATA: See below. IMAGING: CXR without acute pathology MICROBIOLOGY: Please see below. ASSESSMENT: 84 y.o female w/ multiple medical comorbidities being admitted for infection without an obvious source at this time and dehydration. PLAN: 1. Fever - source unknown, likely infectious, leukopenic & thrombocytopenic, likely from sepsis, hypotensive in the ED, responsive to IV fluids, empiric Zosyn, MRSA PCR, cultures pending, continue IV hydration. 2. Hypokalemia - likely due to poor oral intake & GI loss, supplement PO/IV 3. HTN - continue Coreg with hold parameters. 4. Hypothyroidism - continue levothyroxine 5. HLD - continue Simvastatin 6. h/o GI bleed - continue Carafate & PPI DVT Prophylaxis - SCDs GI prophylaxis - PPI & carafate Vital Signs Vital Signs Date Time Temp Pulse Resp B/P (MAP) Pulse Ox O2 Delivery O2 Flow Rate FiO2 12/19/19 16:25 100.2 66 18 102/53 (69) 97 Nasal Cannula 1.0 Laboratory Data Labs 24H Laboratory Tests 2 12/19/19 13:35: Immature Granulocyte % (Auto) 1.4, Neutrophils (%) (Auto) 69.7H, Lymphocytes (%) (Auto) 15.8L, Monocytes (%) (Auto) 12.2H, Eosinophils (%) (Auto) 0.0, Basophils (%) (Auto) 0.9, Neutrophils # (Auto) 1.6, Lymphocytes # (Auto) 0.4L, Monocytes # (Auto) 0.3, Eosinophils # (Auto) 0.0, Basophils # (Auto) 0.0, Nucleated Red Blood Cells % (auto) 0.0, Immature Platelet Fraction 9.3, Anion Gap 8, Glomerular Filtration Rate > 60.0, Lactic Acid Level 1.4, Calcium Level 7.8L, Total Bilirubin 0.6, Direct Bilirubin 0.2, Aspartate Amino Transf (AST/SGOT) 73H, Alanine Aminotransferase (ALT/SGPT) 32, Alkaline Phosphatase 67, Total Protein 6.8, Albumin 2.9L, Albumin/Globulin Ratio 0.74L 12/19/19 13:57: Urine Color YELLOW, Urine Appearance CLOUDYH, Urine pH 6.0, Urine Specific [place] 1.017, Urine Protein 2+H, Urine Glucose (UA) NEGATIVE, Urine Ketones TRACEH, Urine Blood 2+H, Urine Nitrite NEGATIVE, Urine Bilirubin NEGATIVE, Urine Urobilinogen 0.2, Urine Leukocyte Esterase NEGATIVE, Urine WBC (Auto) 1, Urine RBC (Auto) 43H, Urine Hyaline Casts (Auto) 0, Urine Bacteria (Auto) 3+H, Urine Squamous Epithelial Cells 4, Urine Mucus (Auto) SMALL, Urine Sperm (Auto) 12/19/19 15:11: Coronavirus (COVID-19)(PCR) NEGATIVE CBC/BMP Laboratory Tests 12/19/19 13:35 Microbiology Microbiology 12/19/19 Blood Culture, Received Pending 12/19/19 Blood Culture, Received Pending Home Medications Scheduled Calcium Carbonate (Calcium) 500 Mg Tablet, 500 MG PO DAILY Carvedilol (Carvedilol) 12.5 Mg Tab, 12.5 MG PO BID Cholecalciferol (Vitamin D3) (Vitamin D3) 1,000 Unit Tablet, 2,000 UNITS PO DAILY Clopidogrel Bisulfate (Clopidogrel) 75 Mg Tab, 75 MG PO QHS Hydrochlorothiazide (Hydrochlorothiazide) 25 Mg Tab, 25 MG PO DAILY Levothyroxine Sodium (Levothyroxine Sodium) 75 Mcg Tab, 75 MCG PO DAILY Multivitamin (Multivitamins) 1 Each Capsule, 1 CAP PO DAILY Omeprazole (Omeprazole) 20 Mg Capsule.dr, 20 MG PO DAILY Paroxetine HCl (Paroxetine) 10 Mg Tablet, 10 MG PO DAILY Simvastatin (Simvastatin) 20 Mg Tab, 20 MG PO QHS Sucralfate (Sucralfate) 1 Gm Tablet, 1 GM PO BIDWM Scheduled PRN Hydroxyzine HCl (Hydroxyzine HCl) 25 Mg Tablet, 25 MG PO QID PRN for ANXIETY Allergies Coded Allergies: No Known Allergies (Unverified , 12/21/17) A-FIB/CHADSVASC A-FIB History Current/History of A-Fib/PAF?: No MIRYAM ANDERSON MD Dec 19, 2019 17:05
[2019-12-19] MEDS ORDERED: ACETAMINOPHEN TAB 650MG DOSE (2X325MG) PO PRN (17:30)
[2019-12-19] MEDS ORDERED: PIPERACILLIN/TAZOBACTAM SOD 3.375 GM in D5W MINI-BAG PLUS 50 ML IV SCH (18:00)
[2019-12-19 18:08] VITALS: BP 99/48
[2019-12-19] MEDS: SUCRALFATE 1 GM TAB PO SCH (18:10)
[2019-12-19] MEDS: NS 1,000 ML IV SCH (18:28)
[2019-12-19 20:00] VITALS: BP 90/58
[2019-12-19] MEDS: CARVedilol 12.5 MG TAB PO SCH (20:25)
[2019-12-19] MEDS ORDERED: CLOPIDOGREL 75 MG TAB PO SCH (21:00)
[2019-12-19] MEDS: PIPERACILLIN/TAZOBACTAM SOD 3.375 GM in D5W MINI-BAG PLUS 50 ML IV SCH (21:41)
[2019-12-19] MEDS: SIMVASTATIN 20 MG TAB PO SCH (21:41)
[2019-12-19] MEDS ORDERED: DOXYCYCLINE HYCLATE 100MG TABLET PO ONE (23:30)
[2019-12-20] VITALS: BP 119/56
[2019-12-20] MEDS ORDERED: HYALURONIDASE 150UNIT/ML 1ML VIAL (AMPHADASE) (J3470) SC ONE (00:45)
[2019-12-20] MEDS: PIPERACILLIN/TAZOBACTAM SOD 3.375 GM in D5W MINI-BAG PLUS 50 ML IV SCH ×4 (03:22→21:34)
[2019-12-20 04:00] VITALS: BP 128/60
[2019-12-20] MEDS: LEVOTHYROXINE 75MCG TABLET (0.075MG) PO SCH (05:58)
[2019-12-20 06:04] LABS: HEMATOCRIT 34.4 % (36.0-47.0); HEMOGLOBIN 11.5 g/dl (12.0-15.5); MEAN CORPUSCULAR HEMOGLOBIN 30.2 pg (27.0-33.0); MEAN CORPUSCULAR HGB CONC 33.4 g/dl (32.0-36.5); MEAN CORPUSCULAR VOLUME 90.3 fl (80.0-96.0); PLATELET COUNT, AUTOMATED 27 10^3/uL (150-450); RED BLOOD COUNT 3.81 10^6/uL (4.00-5.40); WHITE BLOOD COUNT 2.4 10^3/uL (4.0-10.0)
[2019-12-20 07:25] LABS: ALBUMIN 2.6 GM/DL (3.2-5.2); BILIRUBIN,TOTAL 0.5 MG/DL (0.2-1.0); CALCIUM LEVEL 7.9 MG/DL (8.8-10.2); CREATININE FOR GFR 0.98 MG/DL (0.55-1.30); GLOMERULAR FILTRATION RATE 57.3 (>32); MAGNESIUM LEVEL 1.7 MG/DL (1.8-2.4); POTASSIUM SERUM 3.7 MEQ/L (3.5-5.1); TOTAL PROTEIN 6.1 GM/DL (6.4-8.2)
[2019-12-20] MEDS: NS 1,000 ML IV SCH (07:38)
[2019-12-20 08:00] VITALS: BP 128/68
[2019-12-20] MEDS ORDERED: POTASSIUM CHLORIDE 10 MEQ SR TABLET PO ONE (08:30)
[2019-12-20] MEDS: SUCRALFATE 1 GM TAB PO SCH ×2 (08:33→17:49)
[2019-12-20] MEDS: CARVedilol 12.5 MG TAB PO SCH ×2 (08:33→21:33)
[2019-12-20] MEDS: OYSTER SHELL CALCIUM 500 MG TAB PO SCH (08:33)
[2019-12-20] MEDS: hydroCHLOROthiazide 25 MG TAB PO SCH (08:33)
[2019-12-20] MEDS: OMEPRAZOLE 20 MG CAP PO SCH (08:33)
[2019-12-20] MEDS: VITAMIN D 1,000 INTERNATIONAL UNITS TABLET PO SCH (08:33)
[2019-12-20] MEDS: PARoxetine 10MG TABLET PO SCH (08:34)
[2019-12-20 09:19] LABS: PLTBLUE- EDTA FREE CALC 23 K/mm3 (172-450)
[2019-12-20 09:44] LABS: PLTBLUE- EDTA FREE MACHINE 21 10^3/uL (172-450)
[2019-12-20] MEDS: MAG SULF 1GM/100ML (MAG RUN) 1 GM in IV 1 EA IV SCH ×2 (10:12→11:16)
[2019-12-20 12:00] VITALS: BP 137/63
[2019-12-20] MEDS: DOXYCYCLINE HYCLATE 100MG TABLET PO SCH ×2 (14:44→21:33)
[2019-12-20 16:00] VITALS: BP 117/56
--- NOTE | 2019-12-20 16:29 | CR.PDOC ---
General Date of Consultation: Dec 20, 2019 Referring Provider: MIRYAM GROSSMAN MD Attending Physician: RAMON HIGH MD Consultation HEMATOLOGY REASON FOR CONSULTATION/CHIEF COMPLAINT: Leukopenia and thrombocytopenia of undetermined etiology. HISTORY OF PRESENT ILLNESS: My pleasure to meet Mrs. Hayden. Patient was admitted with fevers, severe fatigue and myalgias. This is started around 5 days ago. Patient denies any respiratory symptoms at the moment. Patient having some GI symptoms with crampy abdominal pain.. Patient was negative for Covid 19. I was asked to help with workup and management. Patient was found to have a tick on her right shoulder which was removed upon admission. PERIPHERAL SMEAR ANALYSIS I personally reviewed the patient's peripheral smear. Patient has normal morphology of her red cells. There is no evidence of inclusion bodies. Rash is a site was noted. Patient has some atypical lymphocytes noted. Patient has no myeloblasts seen in periphery. Patient had decreased platelets with some large platelets noted. Toxic granulations were absent ALLERGIES: Please see below. HOME MEDICATIONS: Please see below. PAST MEDICAL HISTORY: 1. HTN 2. HLD 3. Hypothyroidism 4. GI bleed PAST SURGICAL HISTORY: 1. R lung Lobectomy SOCIAL HISTORY: Previous smoker denies alcohol use denies drug use FAMILY HISTORY: Positive for breast cancer ALLERGIES: Please see below. FAMILY HISTORY: Noncontributory SOCIAL HISTORY: Marital status Lives with and brother Children: yes Tobacco use: none ETOH: none REVIEW OF SYSTEMS: Patient reports a 5 day history of severe debilitating fatigue with associated myalgias and fevers. Patient denies any significant drenching night sweats Patient reports essentially feeling so I doubt that she is bedridden Patient denies any significant cough or shortness of breath Patient denies any diarrhea or bowel changes PHYSICAL EXAMINATION: VITAL SIGNS: Please see below. GENERAL APPEARANCE: Alert oriented 3. HEENT: No lesions noted. RESPIRATORY: Social clear bilaterally with some basilar crackles. CARDIOVASCULAR: Regular rate with a holosystolic murmur. BREAST: Breasts were examined in the sitting and supine position. No bowel masses noted in either breast ABDOMEN: No palpable masses identified. Tenderness noted on palpation with no rebound and normoactive bowel sounds EXTREMITIES: Trace edema lower extremity NEUROLOGICAL: Moving all extremities. SKIN: No petechiae noted LABORATORY DATA: Please see below. ASSESSMENT/PLAN: 1. Acute leukopenia and thrombocytopenia with stable hemoglobin. Clinical picture is not consistent with any hematologic malignancy or infiltrative process. Clinical picture is most consistent with an acute viral syndrome as etiology or tickborne disease as etiology. Some atypical lymphocytes noted concerning for viral illness or reactivation as primary cause 2. Some minimal abdominal pain which may signify an evolving abdominal process RECOMMENDATIONS Recommend tickborne panel Recommend thick smear. Looking for Babesia Recommend Babesia PCR For viral studies, would recommend: Respiratory panel which should include flu a and B analysis Recommend that We look for possible [place] virus reactivation as cause with PCR and serology Recommend CMV PCR and serology If no improvement in blood counts rested testing negative, would proceed with flow cytometry for leukemia lymphoma panel early next week Again, highly doubt we are dealing with a primary bone marrow disorder based on kinetics of blood counts and clinical picture Discussed with Dr. Grossman Total time on consults 70 minutes with more than 50% counseling, coordination of care and review of records and peripheral smear Vital Signs/I&O Vital Signs Date Time Temp Pulse Resp B/P (MAP) Pulse Ox O2 Delivery O2 Flow Rate FiO2 12/20/19 12:00 98.3 66 16 137/63 (87) 91 Room Air 12/20/19 08:00 1.0 I&O- Last 24 Hours up to 6 AM 12/20/19 06:00 Intake Total 1860 ml Output Total 300 ml Balance 1560 ml Laboratory Data Labs 24H Laboratory Tests 12/19/19 13:35 12/20/19 05:21 Laboratory Tests 2 12/19/19 21:44: Methicillin-Resist S.aureus DNA PCR NOT DETECTED 12/20/19 05:21: Nucleated Red Blood Cells % (auto) 0.0, Anion Gap 4L, Glomerular Filtration Rate 57.3, Calcium Level 7.9L, Magnesium Level 1.7L, Total Bilirubin 0.5, Aspartate Amino Transf (AST/SGOT) 70H, Alanine Aminotransferase (ALT/SGPT) 30, Alkaline Phosphatase 57, Total Protein 6.1L, Albumin 2.6L, Albumin/Globulin Ratio 0.74L 12/20/19 08:58: Differential Slide Review Report, Platelet Count, EDTA Free 23*L, Peripheral Blood Smear Path Consult PERIPHERAL SMEAR 12/20/19 14:14: CBC/BMP Laboratory Tests 12/20/19 05:21 Microbiology Microbiology 12/20/19 Malaria Smear ([facility]MANUEL) - Final, Complete 12/19/19 Blood Culture - Preliminary, Resulted No growth after 24 hours . All specim... 12/19/19 Blood Culture - Preliminary, Resulted No growth after 24 hours . All specim... Allergies Coded Allergies: No Known Allergies (Unverified , 12/21/17) Home Medications Scheduled Calcium Carbonate (Calcium) 500 Mg Tablet, 500 MG PO DAILY, (Reported) Carvedilol (Carvedilol) 12.5 Mg Tab, 12.5 MG PO BID, (Reported) Cholecalciferol (Vitamin D3) (Vitamin D3) 1,000 Unit Tablet, 2,000 UNITS PO DAILY, (Reported) Clopidogrel Bisulfate (Clopidogrel) 75 Mg Tab, 75 MG PO QHS, (Reported) Hydrochlorothiazide (Hydrochlorothiazide) 25 Mg Tab, 25 MG PO DAILY, (Reported) Levothyroxine Sodium (Levothyroxine Sodium) 75 Mcg Tab, 75 MCG PO DAILY, (Reported) Multivitamin (Multivitamins) 1 Each Capsule, 1 CAP PO DAILY, (Reported) Omeprazole (Omeprazole) 20 Mg Capsule.dr, 20 MG PO DAILY, (Reported) Paroxetine HCl (Paroxetine) 10 Mg Tablet, 10 MG PO DAILY, (Reported) Simvastatin (Simvastatin) 20 Mg Tab, 20 MG PO QHS, (Reported) Sucralfate (Sucralfate) 1 Gm Tablet, 1 GM PO BIDWM, (Reported) Scheduled PRN Hydroxyzine HCl (Hydroxyzine HCl) 25 Mg Tablet, 25 MG PO QID PRN for ANXIETY, (Reported) RAMON HIGH MD Dec 20, 2019 16:14
--- NOTE | 2019-12-20 17:59 | IPNPDOC ---
Date Seen The patient was seen on 12/20/19. Progress Note SUBJECTIVE: 84 y.o female w/ PMH of HTN, GI bleed, HLD & Hypothyroidism was admitted for acute thrombocytopenia secondary to possible infectious etiology. Patient is seen in the morning, comfortable, reports minimal abdominal pain, no other complaints at this time. She denies any shortness of breath, chest pain, nausea, vomiting or diarrhea. 10 point review of system is negative except for above. PHYSICAL EXAMINATION: VITAL SIGNS: See below GENERAL APPEARANCE: Frail HEENT: Moist mucus membranes CARDIOVASCULAR: S1, S2 LUNGS: Diminished in the bases, no wheezing ABDOMEN: Soft, non-tender, non-distended, +BS EXTREMITIES: ROM intact NEUROLOGICAL: No focal deficits PSYCHIATRIC: Calm LABORATORY DATA: See below. MICROBIOLOGY: Please see below. ASSESSMENT: 84 y.o female w/ multiple medical comorbidities admitted for acute thrombocytopenia from possible infectious etiology. PLAN: 1. Thrombocytopenia/leukopenia. Acute, possible infectious etiology, tick was removed in the emergency department, Babesia/EBV/CMV studies pending, peripheral smear negative, respiratory panel ordered, pro-calcitonin slightly elevated, continue empiric antibiotics, hematology evaluation is greatly appreciated. 2. HTN - continue Coreg with hold parameters. 3. Hypothyroidism - continue levothyroxine 4. HLD - continue Simvastatin 5. h/o GI bleed - continue Carafate & PPI DVT Prophylaxis - SCDs GI prophylaxis - PPI & carafate VS, I&O, 24H, Fishbone Vital Signs/I&O Vital Signs Date Time Temp Pulse Resp B/P (MAP) Pulse Ox O2 Delivery O2 Flow Rate FiO2 12/20/19 16:00 99.1 61 17 117/56 (76) 94 Room Air 12/20/19 08:00 1.0 I&O- Last 24 Hours up to 6 AM 12/20/19 06:00 Intake Total 1860 ml Output Total 300 ml Balance 1560 ml Laboratory Data 24H LABS Laboratory Tests 2 12/19/19 21:44: Methicillin-Resist S.aureus DNA PCR NOT DETECTED 12/20/19 05:21: Nucleated Red Blood Cells % (auto) 0.0, Anion Gap 4L, Glomerular Filtration Rate 57.3, Calcium Level 7.9L, Magnesium Level 1.7L, Total Bilirubin 0.5, Aspartate Amino Transf (AST/SGOT) 70H, Alanine Aminotransferase (ALT/SGPT) 30, Alkaline Phosphatase 57, Total Protein 6.1L, Albumin 2.6L, Albumin/Globulin Ratio 0.74L 12/20/19 08:58: Differential Slide Review Report, Platelet Count, EDTA Free 23*L, Peripheral Blood Smear Path Consult PERIPHERAL SMEAR 12/20/19 14:14: CBC/BMP Laboratory Tests 12/20/19 05:21 Microbiology Microbiology 12/20/19 Malaria Smear (EMMANUEL) - Final, Complete 12/19/19 Blood Culture - Preliminary, Resulted No growth after 24 hours . All specim... 12/19/19 Blood Culture - Preliminary, Resulted No growth after 24 hours . All specim... MIRYAM ANDERSON MD Dec 20, 2019 17:59
[2019-12-20 20:00] VITALS: BP 123/58
[2019-12-20] MEDS: SIMVASTATIN 20 MG TAB PO SCH (21:33)
[2019-12-21] VITALS: BP_SYST 11; BP_SYST 111; BP_DIAS 64
[2019-12-21] MEDS: PIPERACILLIN/TAZOBACTAM SOD 3.375 GM in D5W MINI-BAG PLUS 50 ML IV SCH ×4 (03:37→21:17)
[2019-12-21 04:00] VITALS: BP 106/56
[2019-12-21] MEDS: LEVOTHYROXINE 75MCG TABLET (0.075MG) PO SCH (06:37)
[2019-12-21 06:40] LABS: HEMATOCRIT 33.8 % (36.0-47.0); HEMOGLOBIN 11.1 g/dl (12.0-15.5); MEAN CORPUSCULAR HGB CONC 32.8 g/dl (32.0-36.5); MEAN CORPUSCULAR VOLUME 91.4 fl (80.0-96.0); WHITE BLOOD COUNT 5.4 10^3/uL (4.0-10.0)
[2019-12-21 06:45] LABS: PLATELET COUNT, AUTOMATED 33 10^3/uL (150-450)
[2019-12-21 07:09] LABS: ALBUMIN 2.4 GM/DL (3.2-5.2); ALT/SGPT 30 U/L (12-78); BILIRUBIN,TOTAL 0.4 MG/DL (0.2-1.0); BLOOD UREA NITROGEN 21 MG/DL (7-18); CALCIUM LEVEL 8.3 MG/DL (8.8-10.2); CARBON DIOXIDE LEVEL 30 MEQ/L (21-32); CHLORIDE LEVEL 103 MEQ/L (98-107); CREATININE FOR GFR 0.89 MG/DL (0.55-1.30); GLOMERULAR FILTRATION RATE > 60.0 (>32); GLUCOSE, FASTING 102 MG/DL (70-100); POTASSIUM SERUM 3.3 MEQ/L (3.5-5.1); SODIUM LEVEL 138 MEQ/L (136-145); TOTAL PROTEIN 5.8 GM/DL (6.4-8.2)
[2019-12-21 08:00] VITALS: BP 110/70
[2019-12-21] MEDS: OMEPRAZOLE 20 MG CAP PO SCH (08:49)
[2019-12-21] MEDS: VITAMIN D 1,000 INTERNATIONAL UNITS TABLET PO SCH (08:49)
[2019-12-21] MEDS: OYSTER SHELL CALCIUM 500 MG TAB PO SCH (08:49)
[2019-12-21] MEDS: DOXYCYCLINE HYCLATE 100MG TABLET PO SCH ×2 (08:49→21:16)
[2019-12-21] MEDS: SUCRALFATE 1 GM TAB PO SCH ×2 (08:49→17:08)
[2019-12-21] MEDS: hydroCHLOROthiazide 25 MG TAB PO SCH (08:49)
[2019-12-21] MEDS: CARVedilol 12.5 MG TAB PO SCH ×2 (08:50→21:16)
[2019-12-21] MEDS: PARoxetine 10MG TABLET PO SCH (08:50)
[2019-12-21] MEDS ORDERED: SLF 3 ML SYR IV PRN (09:00)
[2019-12-21] MEDS ORDERED: POTASSIUM CHLORIDE 10 MEQ SR TABLET PO ONE (09:00)
[2019-12-21] MEDS ORDERED: POTASSIUM PHOSPHATE INJ 30 MMOL in D5W 500 ML IV ONE (10:00)
--- NOTE | 2019-12-21 11:10 | IPNPDOC ---
Date Seen The patient was seen on 12/21/19. Progress Note SUBJECTIVE: 84 y.o female w/ PMH of HTN, GI bleed, HLD & Hypothyroidism was admitted for acute thrombocytopenia secondary to possible infectious etiology. Patient seen in the morning, comfortable, reports improvement in fatigue from yesterday, no new complaints, no acute events overnight. 10 point review of system is negative except for above. PHYSICAL EXAMINATION: VITAL SIGNS: See below GENERAL APPEARANCE: Frail HEENT: Moist mucus membranes CARDIOVASCULAR: S1, S2 LUNGS: Diminished in the bases, no wheezing ABDOMEN: Soft, non-tender, non-distended, +BS EXTREMITIES: ROM intact NEUROLOGICAL: No focal deficits PSYCHIATRIC: Calm LABORATORY DATA: See below. MICROBIOLOGY: Please see below. ASSESSMENT: 84 y.o female w/ multiple medical comorbidities admitted for acute thrombocytopenia from possible infectious etiology. PLAN: 1. Thrombocytopenia/leukopenia. Acute, possible infectious etiology, tick was removed in the emergency department, Babesia/EBV/CMV studies pending, peripheral smear negative, continue empiric antibiotics, hematology following. 2. HTN - continue Coreg with hold parameters. 3. Hypothyroidism - continue levothyroxine 4. HLD - continue Simvastatin 5. h/o GI bleed - continue Carafate & PPI DVT Prophylaxis - SCDs GI prophylaxis - PPI & carafate VS, I&O, 24H, Fishbone Vital Signs/I&O Vital Signs Date Time Temp Pulse Resp B/P (MAP) Pulse Ox O2 Delivery O2 Flow Rate FiO2 12/21/19 08:50 68 110/70 12/21/19 08:00 97.4 16 93 Room Air 12/20/19 08:00 1.0 I&O- Last 24 Hours up to 6 AM 12/21/19 06:00 Intake Total 1520 ml Output Total 500 ml Balance 1020 ml Laboratory Data 24H LABS Laboratory Tests 2 12/20/19 14:14: 12/21/19 06:16: Nucleated Red Blood Cells % (auto) 0.0, Immature Platelet Fraction 9.3, Anion Gap 5L, Glomerular Filtration Rate > 60.0, Calcium Level 8.3L, Phosphorus Level 1.0L, Total Bilirubin 0.4, Aspartate Amino Transf (AST/SGOT) 55H, Alanine Aminotransferase (ALT/SGPT) 30, Alkaline Phosphatase 55, Total Protein 5.8L, Albumin 2.4L, Albumin/Globulin Ratio 0.71L CBC/BMP Laboratory Tests 12/21/19 06:16 Microbiology Microbiology 12/20/19 Respiratory Virus Panel (PCR) ([facility]) - Final, Complete 12/20/19 Malaria Smear (EMMANUEL) - Final, Complete 12/19/19 Blood Culture - Preliminary, Resulted No growth after 24 hours . All specim... 12/19/19 Blood Culture - Preliminary, Resulted No growth after 24 hours . All specim... MIRYAM ANDERSON MD Dec 21, 2019 11:10
[2019-12-21 12:00] VITALS: BP 137/63
--- NOTE | 2019-12-21 12:54 | IPNPDOC ---
Date Seen The patient was seen on 12/21/19. Progress Note Hematology Case discussed with attending Laboratory data reviewed Flu and respiratory virus negative Thick smear for babesia negative Plt 33K today WBC 5.4 today Hb 11.1 gm/dl Parvovirus B19 can cause pancytopenia as well as fever, myalgia and nonspecific findings Recommend AM retic count and parvovirus B19 PCR Would not pursue flow cytometry at this time Expect continued improvement in counts and symptoms over next week 20 minutes on care VS, I&O, 24H, Fishbone Vital Signs/I&O Vital Signs Date Time Temp Pulse Resp B/P (MAP) Pulse Ox O2 Delivery O2 Flow Rate FiO2 12/21/19 12:00 97.5 66 16 137/63 (87) 94 Room Air 12/20/19 08:00 1.0 I&O- Last 24 Hours up to 6 AM 12/21/19 06:00 Intake Total 1520 ml Output Total 500 ml Balance 1020 ml Laboratory Data 24H LABS Laboratory Tests 2 12/20/19 14:14: 12/21/19 06:16: Nucleated Red Blood Cells % (auto) 0.0, Immature Platelet Fraction 9.3, Anion Gap 5L, Glomerular Filtration Rate > 60.0, Calcium Level 8.3L, Phosphorus Level 1.0L, Total Bilirubin 0.4, Aspartate Amino Transf (AST/SGOT) 55H, Alanine Aminotransferase (ALT/SGPT) 30, Alkaline Phosphatase 55, Total Protein 5.8L, Albumin 2.4L, Albumin/Globulin Ratio 0.71L CBC/BMP Laboratory Tests 12/21/19 06:16 Microbiology Microbiology 12/20/19 Respiratory Virus Panel (PCR) ([facility]) - Final, Complete 12/20/19 Malaria Smear (EMMANUEL) - Final, Complete 12/19/19 Blood Culture - Preliminary, Resulted No growth after 24 hours . All specim... 12/19/19 Blood Culture - Preliminary, Resulted No growth after 24 hours . All specim... RAMON HIGH MD Dec 21, 2019 12:54
[2019-12-21] MEDS: SLF 3 ML SYR IV SCH ×2 (14:00→21:17)
[2019-12-21 16:00] VITALS: BP 137/63
[2019-12-21 20:00] VITALS: BP 159/69
[2019-12-21] MEDS: SIMVASTATIN 20 MG TAB PO SCH (21:16)
[2019-12-22] VITALS: BP 138/66
[2019-12-22 04:00] VITALS: BP 142/81
[2019-12-22] MEDS: PIPERACILLIN/TAZOBACTAM SOD 3.375 GM in D5W MINI-BAG PLUS 50 ML IV SCH ×4 (04:20→21:56)
[2019-12-22 05:18] LABS: HEMATOCRIT 32.5 % (36.0-47.0); HEMOGLOBIN 10.7 g/dl (12.0-15.5); MEAN CORPUSCULAR HEMOGLOBIN 30.1 pg (27.0-33.0); MEAN CORPUSCULAR HGB CONC 32.9 g/dl (32.0-36.5); MEAN CORPUSCULAR VOLUME 91.3 fl (80.0-96.0); RED BLOOD COUNT 3.56 10^6/uL (4.00-5.40); WHITE BLOOD COUNT 8.4 10^3/uL (4.0-10.0)
[2019-12-22 05:24] LABS: PLATELET COUNT, AUTOMATED 48 10^3/uL (150-450)
[2019-12-22 05:38] LABS: BLOOD UREA NITROGEN 16 MG/DL (7-18); CALCIUM LEVEL 8.5 MG/DL (8.8-10.2); CARBON DIOXIDE LEVEL 31 MEQ/L (21-32); CHLORIDE LEVEL 102 MEQ/L (98-107); CREATININE FOR GFR 0.81 MG/DL (0.55-1.30); GLOMERULAR FILTRATION RATE > 60.0 (>32); GLUCOSE, FASTING 108 MG/DL (70-100); POTASSIUM SERUM 3.3 MEQ/L (3.5-5.1); SODIUM LEVEL 138 MEQ/L (136-145)
[2019-12-22] MEDS: SLF 3 ML SYR IV SCH ×3 (06:28→21:57)
[2019-12-22] MEDS: LEVOTHYROXINE 75MCG TABLET (0.075MG) PO SCH (06:29)
[2019-12-22 07:22] LABS: PHOSPHORUS LEVEL 2.8 MG/DL (2.5-4.9)
[2019-12-22 08:00] VITALS: BP 138/63
[2019-12-22] MEDS: OYSTER SHELL CALCIUM 500 MG TAB PO SCH (08:49)
[2019-12-22] MEDS: VITAMIN D 1,000 INTERNATIONAL UNITS TABLET PO SCH (08:49)
[2019-12-22] MEDS: PARoxetine 10MG TABLET PO SCH (08:49)
[2019-12-22] MEDS: OMEPRAZOLE 20 MG CAP PO SCH (08:50)
[2019-12-22] MEDS: DOXYCYCLINE HYCLATE 100MG TABLET PO SCH ×2 (08:50→21:56)
[2019-12-22] MEDS: SUCRALFATE 1 GM TAB PO SCH ×2 (08:50→17:27)
[2019-12-22] MEDS: POTASSIUM CHLORIDE 10 MEQ SR TABLET PO SCH ×2 (08:50→12:20)
[2019-12-22] MEDS: CARVedilol 12.5 MG TAB PO SCH ×2 (08:50→21:56)
[2019-12-22] MEDS: hydroCHLOROthiazide 25 MG TAB PO SCH (08:51)
[2019-12-22 12:00] VITALS: BP 147/65
--- NOTE | 2019-12-22 15:21 | IPNPDOC ---
Date Seen The patient was seen on 12/22/19. Progress Note SUBJECTIVE: 84 y.o female w/ PMH of HTN, GI bleed, HLD & Hypothyroidism was admitted for acute thrombocytopenia secondary to possible infectious etiology. Patient seen in the morning, comfortable, continues to have good clinical improvement, fatigue/weakness have near completely resolved, no new complaints, no acute events overnight. 10 point review of system is negative except for above. PHYSICAL EXAMINATION: VITAL SIGNS: See below GENERAL APPEARANCE: No distress HEENT: Moist mucus membranes CARDIOVASCULAR: S1, S2 LUNGS: Diminished in the bases, no wheezing ABDOMEN: Soft, non-tender, non-distended, +BS EXTREMITIES: ROM intact NEUROLOGICAL: No focal deficits PSYCHIATRIC: Calm LABORATORY DATA: See below. MICROBIOLOGY: Please see below. ASSESSMENT: 84 y.o female w/ multiple medical comorbidities admitted for acute thrombocytopenia from possible infectious etiology. PLAN: 1. Thrombocytopenia/leukopenia. Acute, possible infectious etiology, tick was removed in the emergency d epartment, Babesia/EBV/CMV/EBV studies pending, peripheral smear negative, continue empiric antibiotics, hematology following. One set of blood cultures growing G+ cocci, likely contamination, repeat cultures ordered. 2. HTN - continue Coreg with hold parameters. 3. Hypothyroidism - continue levothyroxine 4. HLD - continue Simvastatin 5. h/o GI bleed - continue Carafate & PPI DVT Prophylaxis - SCDs GI prophylaxis - PPI & carafate VS, I&O, 24H, Fishbone Vital Signs/I&O Vital Signs Date Time Temp Pulse Resp B/P (MAP) Pulse Ox O2 Delivery O2 Flow Rate FiO2 12/22/19 12:00 97.4 72 16 147/65 (92) 91 Room Air 12/20/19 08:00 1.0 I&O- Last 24 Hours up to 6 AM 12/22/19 05:59 Intake Total 1110 ml Output Total 200 ml Balance 910 ml Laboratory Data 24H LABS Laboratory Tests 2 12/22/19 04:56: Reticulocyte # (auto) 15.0L, Nucleated Red Blood Cells % (auto) 0.0, Percent Reticulocyte Count 0.4L, Reticulocyte Hemoglobin Equivalent 30.6, Anion Gap 5L, Glomerular Filtration Rate > 60.0, Calcium Level 8.5L, Phosphorus Level 2.8# CBC/BMP Laboratory Tests 12/22/19 04:56 Microbiology Microbiology 12/22/19 Blood Culture, Received Pending 12/20/19 Respiratory Virus Panel (PCR) ([facility]) - Final, Complete 12/20/19 Malaria Smear (EMMANUEL) - Final, Complete 12/19/19 Blood Culture - Preliminary, Resulted No Growth after 72 hours. All specime... 12/19/19 Blood Culture - Preliminary, Resulted MIRYAM ANDERSON MD Dec 22, 2019 15:21
[2019-12-22 16:00] VITALS: BP 138/70
[2019-12-22 20:00] VITALS: BP 134/60
[2019-12-22] MEDS: SIMVASTATIN 20 MG TAB PO SCH (21:57)
[2019-12-23] VITALS: BP 122/58
[2019-12-23] MEDS: PIPERACILLIN/TAZOBACTAM SOD 3.375 GM in D5W MINI-BAG PLUS 50 ML IV SCH ×4 (03:10→14:27)
[2019-12-23 04:50] VITALS: BP 133/70
[2019-12-23 04:52] LABS: HEMATOCRIT 32.3 % (36.0-47.0); HEMOGLOBIN 10.5 g/dl (12.0-15.5); MEAN CORPUSCULAR HEMOGLOBIN 29.7 pg (27.0-33.0); MEAN CORPUSCULAR HGB CONC 32.5 g/dl (32.0-36.5); MEAN CORPUSCULAR VOLUME 91.5 fl (80.0-96.0); RED BLOOD COUNT 3.53 10^6/uL (4.00-5.40); WHITE BLOOD COUNT 9.3 10^3/uL (4.0-10.0)
[2019-12-23 04:57] LABS: PLATELET COUNT, AUTOMATED 92 10^3/uL (150-450)
[2019-12-23 05:12] LABS: CALCIUM LEVEL 8.8 MG/DL (8.8-10.2); POTASSIUM SERUM 4.1 MEQ/L (3.5-5.1)
[2019-12-23] MEDS: LEVOTHYROXINE 75MCG TABLET (0.075MG) PO SCH (05:42)
[2019-12-23] MEDS: SLF 3 ML SYR IV SCH ×2 (05:43→13:42)
[2019-12-23] MEDS: SUCRALFATE 1 GM TAB PO SCH (08:54)
[2019-12-23] MEDS: VITAMIN D 1,000 INTERNATIONAL UNITS TABLET PO SCH (08:54)
[2019-12-23] MEDS: OYSTER SHELL CALCIUM 500 MG TAB PO SCH (08:54)
[2019-12-23] MEDS: DOXYCYCLINE HYCLATE 100MG TABLET PO SCH (08:54)
[2019-12-23] MEDS: OMEPRAZOLE 20 MG CAP PO SCH (08:54)
[2019-12-23] MEDS: PARoxetine 10MG TABLET PO SCH (08:54)
[2019-12-23 08:56] VITALS: BP 132/72
[2019-12-23] MEDS: CARVedilol 12.5 MG TAB PO SCH (08:56)
[2019-12-23] MEDS: hydroCHLOROthiazide 25 MG TAB PO SCH (08:56)
[2019-12-23 14:06] LABS: EBV VIRAL CAPSID AG IgG > 600.0 U/mL (0.0-17.9); EBV VIRAL CAPSID AG IgM <36.0 U/mL (0.0-35.9)
--- NOTE | 2019-12-23 14:46 | DS.PDOC ---
Discharge Summary General Date of Admission Dec 19, 2019 at 16:43 Date of Discharge 12/23/19 Attending Physician: MIRYAM ANDERSON MD Discharge Summary PROCEDURES PERFORMED DURING STAY: None. ADMITTING DIAGNOSES: 1. Acute thrombocytopenia, likely due to viral infection. DISCHARGE DIAGNOSES: 1. Acute thrombocytopenia, likely due to viral infection. COMPLICATIONS/CHIEF COMPLAINT: Fever Htn Hypothyroidism. HISTORY OF PRESENT ILLNESS: 84-year-old female was admitted for acute onset thrombocytopenia with fever. There was initially concern for Babesia, peripheral smear negative, serology is pending. Peripheral smear showed atypical lymphocytes, EBV/CMV/pars testing pending, thrombus cytopenia continue to improve with supportive care as expected, given this is likely from a viral infection. Patient was invited by hematology and agreed with the plan above, no further intervention was recommended. With supportive care the patient has slowly and consistently improved, nearly at her baseline. She was evaluated and cleared by physical therapy. Patient is hemodynamically stable for discharge at this time with outpatient follow-up. HOSPITAL COURSE: As above. DISCHARGE MEDICATIONS: Please see below. ALLERGIES: Please see below. PHYSICAL EXAMINATION: VITAL SIGNS: See below GENERAL APPEARANCE: No distress HEENT: Moist mucus membranes CARDIOVASCULAR: S1, S2 LUNGS: Diminished in the bases, no wheezing ABDOMEN: Soft, non-tender, non-distended, +BS EXTREMITIES: ROM intact NEUROLOGICAL: No focal deficits PSYCHIATRIC: Calm LABORATORY DATA: Please see below. IMAGING: Chest x-ray without acute pathology PROGNOSIS: Fair ACTIVITY: As tolerated. DIET: Cardiac DISCHARGE PLAN: Follow with PCP and hematology in 1-2 weeks DISPOSITION: Home. DISCHARGE INSTRUCTIONS: 1. As above. DISCHARGE CONDITION: Stable. TIME SPENT ON DISCHARGE: Greater than 24 minutes. Vital Signs/I&Os Vital Signs Date Time Temp Pulse Resp B/P (MAP) Pulse Ox O2 Delivery O2 Flow Rate FiO2 12/23/19 08:56 78 132/72 12/23/19 04:50 97.3 20 91 Room Air 12/20/19 08:00 1.0 I&O- Last 24 Hours up to 6 AM 12/23/19 06:00 Intake Total 1300 ml Output Total 200 ml Balance 1100 ml Laboratory Data Labs 24H Laboratory Tests 2 12/23/19 04:24: Nucleated Red Blood Cells % (auto) 0.0, Immature Platelet Fraction 5.9, Anion Gap 6L, Glomerular Filtration Rate 56.0, Calcium Level 8.8 CBC/BMP Laboratory Tests 12/23/19 04:24 Microbiology Microbiology 12/22/19 Blood Culture - Preliminary, Resulted No growth after 24 hours . All specim... 12/20/19 Respiratory Virus Panel (PCR) ([facility]) - Final, Complete 12/20/19 Malaria Smear (EMMANUEL) - Final, Complete 12/19/19 Blood Culture - Preliminary, Resulted No Growth after 72 hours. All specime... 12/19/19 Blood Culture - Final, Complete Staphylococcus Epidermidis Discharge Medications Scheduled Calcium Carbonate (Calcium) 500 Mg Tablet, 500 MG PO DAILY, (Reported) Carvedilol (Carvedilol) 12.5 Mg Tab, 12.5 MG PO BID, (Reported) Cholecalciferol (Vitamin D3) (Vitamin D3) 1,000 Unit Tablet, 2,000 UNITS PO DAILY, (Reported) Clopidogrel Bisulfate (Clopidogrel) 75 Mg Tab, 75 MG PO QHS, (Reported) Hydrochlorothiazide (Hydrochlorothiazide) 25 Mg Tab, 25 MG PO DAILY, (Reported) Levothyroxine Sodium (Levothyroxine Sodium) 75 Mcg Tab, 75 MCG PO DAILY, (Reported) Multivitamin (Multivitamins) 1 Each Capsule, 1 CAP PO DAILY, (Reported) Omeprazole (Omeprazole) 20 Mg Capsule.dr, 20 MG PO DAILY, (Reported) Paroxetine HCl (Paroxetine) 10 Mg Tablet, 10 MG PO DAILY, (Reported) Simvastatin (Simvastatin) 20 Mg Tab, 20 MG PO QHS, (Reported) Sucralfate (Sucralfate) 1 Gm Tablet, 1 GM PO BIDWM, (Reported) Scheduled PRN Hydroxyzine HCl (Hydroxyzine HCl) 25 Mg Tablet, 25 MG PO QID PRN for ANXIETY, (Reported) Allergies Coded Allergies: No Known Allergies (Unverified , 12/21/17) MIRYAM ANDERSON MD Dec 23, 2019 14:46
[2019-12-24 08:06] LABS: BABESIA MICROTI PCR Negative (Negative); BABESIOSIS LEVEL IGG <1:10 (Neg:<1:10); BABESIOSIS LEVEL IGM <1:10 (Neg:<1:10); Lyme Disease IgG/IgM Antibodie <0.91 ISR (0.00-0.90); Lyme Disease IgM Ab Quantitati <0.80 index (0.00-0.79)
== END 2019-12-23 14:41 | disposition home or self-care (01) | DRG 813 ==
LOC: M ED 12:50 → EDBD 12:50 → M ED INP 16:43 → ENRESERV 17:01 → M PCU 17:54 → M MSPAV 12-23 04:40
PROVIDERS: ADMIT Internal Medicine; ATTEND Internal Medicine
DX: D69.6 Thrombocytopenia, unspecified (principal); E78.5 Hyperlipidemia, unspecified; E03.9 Hypothyroidism, unspecified; E86.0 Dehydration; E87.6 Hypokalemia; D72.819 Decreased white blood cell count, unspecified; I10 Essential (primary) hypertension; B34.9 Viral infection, unspecified; Z90.5 Acquired absence of kidney; Z87.891 Personal history of nicotine dependence; Z79.899 Other long term (current) drug therapy; S40.261A Insect bite (nonvenomous) of right shoulder, initial encounter; W57.XXXA Bitten or stung by nonvenomous insect and other nonvenomous arthropods, initial encounter; Y92.9 Unspecified place or not applicable

== ENCOUNTER → 2020-02-19 | Outpatient (REF) | payer MEDICARE ==
[~2020-02-19] MED LIST changes: +HYDR-3363 PO; +OMEP1CAP73 PO; +SUCR1TAB56 PO; +VITAD1000T PO
[2020-02-19 16:21] LABS: BASO # 0.1 10^3/uL (0.0-0.2); BASO % 1.2 % (0.0-1.0); EOS # 0.1 10^3/uL (0.0-0.5); EOS % 1.7 % (0.0-3.0); HEMOGLOBIN 11.3 g/dl (12.0-15.5); LYMPH # 1.4 10^3/uL (1.5-5.0); LYMPH % 24.2 % (24.0-44.0); MEAN CORPUSCULAR HEMOGLOBIN 29.5 pg (27.0-33.0); MEAN CORPUSCULAR HGB CONC 31.4 g/dl (32.0-36.5); MONO # 0.5 10^3/uL (0.0-0.8); MONO % 7.7 % (0.0-5.0); NEUTROPHILS # 3.9 10^3/uL (1.5-8.5); NEUTROPHILS % 64.9 % (36.0-66.0); PLATELET COUNT, AUTOMATED 254 10^3/uL (150-450); RED BLOOD COUNT 3.83 10^6/uL (4.00-5.40)
[2020-02-19 16:52] LABS: ALBUMIN 3.5 GM/DL (3.2-5.2); ALT/SGPT 20 U/L (12-78); BILIRUBIN,TOTAL 0.4 MG/DL (0.2-1.0); BLOOD UREA NITROGEN 20 MG/DL (7-18); CALCIUM LEVEL 8.9 MG/DL (8.8-10.2); CARBON DIOXIDE LEVEL 34 MEQ/L (21-32); CHLORIDE LEVEL 101 MEQ/L (98-107); CHOLESTEROL LEVEL 189 MG/DL (<200); CHOLESTEROL RISK RATIO 3.203 (<5); CREATININE FOR GFR 0.92 MG/DL (0.55-1.30); GLOMERULAR FILTRATION RATE > 60.0 (>32); GLUCOSE, FASTING 79 MG/DL (70-100); HDL CHOLESTEROL 59 MG/DL (>40); LDL CHOLESTEROL 105 MG/DL (<100); NON-HDL-C 130 MG/DL; SODIUM LEVEL 139 MEQ/L (136-145); TOTAL PROTEIN 7.1 GM/DL (6.4-8.2); TRIGLYCERIDES LEVEL 124 MG/DL (<150)
== END ==
LOC: M LAB REF 16:04
PROVIDERS: ATTEND Family Medicine
DX: I77.9 Disorder of arteries and arterioles, unspecified (principal); D69.6 Thrombocytopenia, unspecified; E03.9 Hypothyroidism, unspecified; I10 Essential (primary) hypertension

== ENCOUNTER 2021-10-10 18:21 | Emergency (ER) | payer MEDICARE ==
[~2021-10-10] VITALS: Ht 160 cm; Wt 63.9 kg
[~2021-10-10 18:21] MED LIST changes: +D31000TA2 PO; +HYDR-3490 PO; -HYDR25TAB PO; +OMEP-173 PO; -OMEP-218 PO; -VITAD1000T PO
[2021-10-10] MEDS ORDERED: DERMABOND TOPICAL SKIN ADHESIVE TOP ONE (19:30)
[2021-10-10] MEDS ORDERED: AUGMENTIN 875 MG TAB PO ONE (19:45)
[2021-10-10] MEDS ORDERED: AMOX875T2 PO (19:52)
[2021-10-10 21:16] LABS: BASO # 0.1 10^3/uL (0.0-0.2); BASO % 0.8 % (0.0-1.0); EOS # 0.2 10^3/uL (0.0-0.5); EOS % 1.9 % (0.0-3.0); HEMATOCRIT 36.8 % (36.0-47.0); HEMOGLOBIN 11.6 g/dl (12.0-15.5); LYMPH # 2.2 10^3/uL (1.5-5.0); LYMPH % 24.1 % (24.0-44.0); MEAN CORPUSCULAR HEMOGLOBIN 30.4 pg (27.0-33.0); MEAN CORPUSCULAR HGB CONC 31.5 g/dl (32.0-36.5); MEAN CORPUSCULAR VOLUME 96.6 fl (80.0-96.0); MONO # 0.8 10^3/uL (0.0-0.8); MONO % 8.7 % (2.0-8.0); PLATELET COUNT, AUTOMATED 249 10^3/uL (150-450); RED BLOOD COUNT 3.81 10^6/uL (4.00-5.40); WHITE BLOOD COUNT 9.3 10^3/uL (4.0-10.0)
[2021-10-10] MEDS ORDERED: amLODIPine 5 MG TAB PO ONE (22:10)
[2021-10-10] MEDS ORDERED: AMLO25TA PO (22:11)
[2021-10-10 22:23] VITALS: BP 166/72
[2021-10-10 22:25] VITALS: BP 166/72
== END 2021-10-10 22:41 | disposition home or self-care (01) ==
LOC: M ED 18:21
DX: I16.0 Hypertensive urgency (principal); S60.511A Abrasion of right hand, initial encounter; W55.03XA Scratched by cat, initial encounter; Y92.018 Other place in single-family (private) house as the place of occurrence of the external cause; I10 Essential (primary) hypertension; E03.9 Hypothyroidism, unspecified; Z79.899 Other long term (current) drug therapy; Z79.890 Hormone replacement therapy; Z79.01 Long term (current) use of anticoagulants; F17.210 Nicotine dependence, cigarettes, uncomplicated

== ENCOUNTER → 2022-02-17 | Outpatient (REF) | payer MEDICARE ==
[~2022-02-17] MED LIST changes: +AMLO25TA PO; +AMOX875T2 PO; -D31000TA2 PO; +VITA100093 PO
[2022-02-17 17:02] LABS: APPEARANCE, URINE HAZY (CLEAR); BACTERIA, URINE AUTO NEGATIVE (NEGATIVE); BILIRUBIN, URINE AUTO NEGATIVE (NEGATIVE); BLOOD, URINE BLOOD 1+ (NEGATIVE); COLOR, URINE YELLOW (YELLOW); GLUCOSE, URINE (UA) AUTO NEGATIVE (NEGATIVE); GRANULAR CAST, URINE AUTO 1 /LPF; KETONE, URINE AUTO TRACE mg/dL (NEGATIVE); LEUKOCYTE ESTERASE, URINE AUTO TRACE (NEGATIVE); MUCUS, URINE SMALL (NEGATIVE); NITRITE, URINE AUTO NEGATIVE (NEGATIVE); PROTEIN, URINE AUTO 2+ mg/dL (NEGATIVE); RBC, URINE AUTO 42 /HPF (0-3); SPECIFIC GRAVITY URINE AUTO 1.018 (1.002-1.035); SQUAMOUS EPITHELIAL CELL UR AU 1 /HPF (0-6); WBC, URINE AUTO 3 /HPF (0-3)
== END ==
LOC: M LAB REF 16:25
PROVIDERS: ATTEND Physician Assistant
DX: N39.0 Urinary tract infection, site not specified (principal)

== ENCOUNTER 2022-04-16 15:26 | Emergency (ER) | payer MEDICARE ==
[~2022-04-16] VITALS: Ht 157.5 cm; Wt 60.6 kg
[2022-04-16] MEDS ORDERED: AMLO1TAB24 (15:46)
[2022-04-16] MEDS ORDERED: POTA10808 (15:46)
[2022-04-16 19:39] VITALS: BP 180/100
== END 2022-04-16 19:48 | disposition left against medical advice (07) ==
LOC: M ED 15:26
DX: Z53.29 Procedure and treatment not carried out because of patient's decision for other reasons (principal)